=== PATIENT | female | born 1965 | race Two or more races ===

== ENCOUNTER → 2024-05-23 | Outpatient (CLI) | payer MEDICAID, SELFPAY ==
--- NOTE | 2024-05-23 13:00 | XR_ITS ---
Examination: Breast ultrasound, unilateral, left complete Date and time of exam: May 23, 2024 at 1326 hours INDICATIONS: Mammogram November 18, 2023 14 mm nodule nipple level left breast Technique: Real-time davis scale ultrasonographic imaging performed left breast including all 4 quadrants as well as nipple retroareolar and axillary region. Findings: No cystic or solid mass IMPRESSION: BI-RADS Category 1: Negative study
== END | disposition home or self-care (01) ==
PROVIDERS: PCP Student in an Organized Health Care Education/Training Program; Referring Provider Student in an Organized Health Care Education/Training Program; Visit Provider Student in an Organized Health Care Education/Training Program
DX: N63.20 Unspecified lump in the left breast, unspecified quadrant (principal)
CPT/HCPCS: 76641